=== PATIENT | female | born 1960 | race Caucasian/White ===

== ENCOUNTER 2025-01-16 01:06 | Day surgery (SDC) | payer MEDICARE, SELFPAY ==
[2025-01-08 09:25] VITALS: BMI 18.3
--- NOTE | 2025-01-08 09:35 | PC.NURSE ---
Report to the Outpatient Waiting Room, entrance under the green pavilion located off [facility], at time __0700am on date ____01/16/25___. Planned Procedure Time: __0900am .? Time changes happen often and if your time is changed the preop area will call you the afternoon before. - You and your visitor will be asked to self-screen and do not enter if you have any COVID symptoms. Please call surgeon if you need to reschedule. - A mask is optional within the hospital at this time. Patients may have clear liquids (water, carbonated beverages, clear teas, apple juice) until 3 hours prior to surgery with a maximum of 20 ounces. - No food from midnight until time of surgery and no smoking, or chewing tobacco (or any form of nicotine). No chewing gum, candy or mints. (0600am) Take only the following medications with a SIP of water on the morning of surgery: ____Levothyroxine DO NOT STOP ANY OF YOUR OTHER PRESCRIPTION MEDICATIONS PRIOR TO SURGERY EXCEPT THE FOLLOWING Hold all vitamins and supplements for 3 days per anesthesiologist. Date of last dose 01/12/25 Medications to discontinue per physician NONE Date to take last dose____NONE Please no make-up, nail uzbek, hairspray, perfume, deodorant, or body powder the day of surgery.? No jewelry (including any body piercings) or valuables the day of surgery, leave them at home.? Please take a shower or bath the night before, or the morning of, surgery with an antibacterial soap.?(GOLD DIAL) Wear comfortable, loose fitting clothing.? - Jewelry must be removed prior to entering the operating room.? Rings and piercings that are not removed may be cut off. - The hospital will not accept responsibility for valuables.? - Please leave all valuables, including medications, at home the day of surgery. If you are going home after surgery, a licensed power screwdriver operator must drive you home.? - NO public transportation without another adult if you receive anesthesia. - We recommend that an adult stay with you for 24 hours following discharge. - We also recommend that you do not drive, make important decision, drink alcoholic beverages, or take any drugs that were not prescribed by your health care provider for at least 24 hours after your discharge time. Follow any additional instructions given to you from your surgeon. Telephone instructions given to __Patient and asked if any additional questions and then verbalized understanding. Patient advised to call surgeon office or pre surgery nurse liaison [phone] if any additional questions.
--- OUTSIDE RECORDS SUMMARY | 2025-01-16 01:11 | XMS_ITS | Clinical Summary ---
Author Organization [facility] Address [address] [place] [address] Care Team Providers Care Web Portal Developer Name Role Phone Mehrdad Chappell MD Primary Care Provider Allergies No known active allergies Medications multivitamin tablet multivitamin tablet Active valACYclovir (VALTREX) 500 mg tablet Take 1 tablet (500 mg total) by mouth daily 90 tablet 2 4 Active levothyroxine (SYNTHROID) 25 mcg tablet TAKE 1 TABLET BY MOUTH DAILY IN THE EARLY IN THE MORNING BEFORE BREAKFAST 100 tablet 2 5 Active olmesartan (BENICAR) 5 mg tablet TAKE 1 TABLET(5 MG) BY MOUTH DAILY 90 tablet 1 5 Active LORazepam (ATIVAN) 0.5 mg tabletIndicati ons:anxiety Take 1 tablet (0.5 mg total) by mouth 2 (two) times a day as needed for anxiety 6 tablet 5 Active LORazepam (ATIVAN) 0.5 mg tabletIndicati ons:anxiety Take 1 tablet (0.5 mg total) by mouth 2 (two) times a day as needed for anxiety 6 tablet 5 025 Discontin ued(Reord er) Active Problems Problem Noted Date Diagnosed Date Acquired hypothyroidism 02/26/2021 Assessment & Plan (03/02/2022 9:37 PM CDT): Clinically euthyroid. Cont LTX 25mcg every day Osteopenia of neck of left femur 02/25/2020 Overview (02/25/2020): 02/2019 SUMMARY OF CURRENT RESULTS: Region BMD T-score Z-score AP Spine (L1-L4) 0.967 -0.7 0.7 Femoral Neck (Left) 0.664 -1.7 -0.4 Total Hip (Left) 0.804 -1.1 -0.2 Assessment & Plan (03/02/2022 9:38 PM CDT): Rec calcium, vit D, weight bearing exercise and check 02/2023 Assessment & Plan (02/25/2020 12:04 PM CDT): Monitor q2 yr Pain in both hands 02/25/2020 Neck pain 02/25/2020 Menopause 02/21/2019 Assessment & Plan (03/02/2022 9:38 PM CDT): F/b hormone clinic: estradiol pellet and progesterone PO Assessment & Plan (02/21/2019 1:22 PM CDT): dexa Routine health maintenance 02/20/2018 Assessment & Plan (03/02/2022 11:13 AM CDT): - - Depression screen: PHQ Screening PHQ-2 Total Score (If total score is 3 or more points, staff should administer the PHQ-9): 0 PHQ-9 Total Score: 0 - A1c: screen today - Lipids: screen today - DEXA: see osteopenia - Colon cancer: normal 02/2015, due 2024 - Mammogram: Normal 05/2021 - Pap: normal with neg HPV 09/2020 - Lung cancer: not needed - Hepatitis C: NR - HIV: NR - Influenza: utd - Td/Tdap: utd 2021 - Shingrix utd - Pneumovax rec at 63 - Prevnar: discuss at 63 - COVID: She had severe reactogenicity with dose #2 of moderna. We discussed risks and benefits of bivalent vaccine today. Routine health maintenance objectives discussed, including healthy diet, physical activity, and adequate calcium and vitamin D intake. Orders placed for any outstanding screening studies as noted. Physical exam performed as above.Routine annual labs, if needed, have been ordered and will be reviewed with patient when results available. Family history of aortic aneurysm 02/20/2018 Overview (02/20/2018): Dr. 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 02/26/2021 03/02/2022 Overview (02/26/2021): C5-6 loss of lordosis Assessment & Plan (02/26/2021 8:35 AM CDT): PT suggested Atrophic vaginitis 05/28/2019 2 Mass of head 01/19/2017 03/02/2022 Dyspareunia 02/24/2015 03/02/2022 Telogen effluvium 01/08/2014 03/02/2022 Overview (02/20/2018): Alternative Rx with Laminaria Celtic sea salt Ca/Mg/[place] Okra pepsin Chadian nuts-raw- and only 2 a day Assessment & Plan (02/21/2019 1:29 PM CDT): Her hair loss by report Encounters Date Type Department Care Team Description 01/08/2025 2:04 PM CDT - 01/08/2025 11:59 PM CDT Hospital Encounter [facility] [address] [place] [address] Screening mammogram, encounter for Discharge Disposition: Discharge to home or self care 01/08/2025 Results Follow-Up [facility] [address] [address] Mehrdad Chappell MD Screening Mammogram Bilateral W Eric from Last 3 Months Immunizations Immunization Administration Dates Next Due Influenza, Quadrivalent, Patricia l Culture-based MDCK, Antibiotic Free, Intramuscular 02/20/2018 Influenza, Quadrivalent, Rec ombinant, Egg Free, Preservative Free, Intramuscular 03/02/2022,02/26/2021,02/25/2020,02/21 Influenza, Quadrivalent, Spl it, Preservative Free, Intramuscular 03/07/2023 Influenza, Trivalent, High D ose, Split, Preservative Free, Intramuscular 03/13/2024 Moderna SARS-CoV-2 Monovalen t Vaccination (12+ YRS) 06/18/2020,05/21/2020 Pneumococcal Conjugate Pcv20 03/13/2024 RSV Vaccine, Pref, Recombina nt, Subunit, Adjuvanted, PF, IM (Arexvy) 03/08/2023 Tdap 03/02/2022,05/15/1999 ZOSTER Recombinant 06/18/2019,02/28/2019 Surgical History Surgery Date Site/Laterality Comments OTHER SURGICAL HISTORY 05/16/1990 - 05/15/1991 laser bx. endometriosis BREAST BIOPSY Right Medical History Medical History Date Comments History of multiple allergies Al lergies Neoplasm of unspecified beha vior of bone, soft tissue, and skin Soft tissue neoplasm - (Adde d by TW Conv) Other specified health status Hi story of dog bite - (Added by TW Conv) Personal history of diseases of skin or subcutaneous tissue History of actinic keratosis - (Added by TW Conv) Personal history of other benign neoplasm History of dysplastic nevus - (Added by TW Conv) Inflamed seborrheic keratosis In flamed seborrheic keratosis - (Added by TW Conv) Fibrocystic breast Breast cyst Family History Medical History Relation Name Comments Hyperlipidemia Father Hyperlipidemi a; Aortic aneurysm Maternal Grandfather Aortic aneurysm Mother Atrial fibrillation Mother Hypertension Mother Osteoporosis Mother Rheum arthritis Mother Aortic aneurysm Mother's Brother Breast cancer Sister Rheum arthritis Sister Relation Name Status Comments Father Alive Maternal Grandfather Mother Alive Mother's Brother Sister Social History Tobacco Use Types Packs/Day Years Used Date Smoking Tobacco: Never Smokeless Tobacco: Never Tobacco Cessation:Counseling Given: Not Answered AUDIT-C Answer Date Recorded Q1: How often do you have a drink containing alc ohol? 2-4 times a month 03/02/2022 Q2: How many drinks containi ng alcohol do you have on a typical day when you are drinking? 1 or 2 03/02/2022 Q3: How often do you have si x or more drinks on one occasion? 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 Gender Identity Female 02/20/2021 5:48 PM CDT Sexual Orientation Straight 02/20/2021 5: 48 PM CDT Occupation Industry Job Start Date Job End Date RN Not on file Not on file Not on file Obstetrics History Para Term AB IAB SAB Ectopic Multiple Livin g Live Births 2 1 1 Date Outcome GA Total Labor Labor/2nd/3rd Weight Sex Type Anes PTL Usha A1 A5 Name Clin Term Last Filed Vital Signs Vital Sign Reading Time Taken Comments Blood Pressure 134/93 03/13/2024 11:28 AM CDT Pulse 67 03/13/2024 11:27 AM CDT Temperature 36.7 C (98.1 F) 02/25/2020 11:47 AM CDT Respiratory Rate - - Oxygen Saturation 96% 03/13/2024 11:27 AM CDT Inhaled Oxygen Concentration - - Weight 54 kg (119 lb) 01/08/2025 2:10 PM CDT Height 170.2 cm (5' 7) 01/08/2025 2:10 PM CDT Body Mass Index 18.64 01/08/2025 2:10 PM CDT Plan of Treatment Health Maintenance Due Date Last Done Comments Covid-19 Vaccine (3 - 2024-2 6 season) 2025 06/18/2020, 05/21/2020 Influenza Vaccine (#1) 2025 , 03/07/2023, 03/02/2022, Additional history exists Colon Cancer Screening-Colonoscopy 02/24/2025 02/24/2015 Depression Screening 03/13/2025 03/13/2024, 03/07/2023, 03/02/2022, Additional history exists Fall Risk Assessment 03/13/2025 03/13/2024 Well Visit 65+ 03/13/2025 03/13/2024, 02/14, 03/02/2022, Additional history exists Osteoporosis Screening-Bone Density Scan 04/27/2025 04/27/2023, 03/07/2019 Breast Cancer Screening-Mammogram 01/08/2026 01/08/2025, 12/13/2023, 07/15/2022, Additional history exists DTaP/Tdap/Td Vaccine (3 - Td or Tdap) 03/02/2032 03/02/2022, 05/15/1999 Colon Cancer Screening-CT Colonography Discontinued 02/24/2015 Colon Cancer Screening-DNA Stool Discontinued 02/25/20 15 Colon Cancer Screening-FIT Discontinued 02/24/2015 Colon Cancer Screening-Sigmoidoscopy Discontinued 02/24/2015 Zoster Vaccine Completed 06/18/2019, 02/28/2019 Hepatitis C Screening Completed 03/07/2023 Hepatitis B Screening Completed 03/13/2024 Pneumococcal vaccine 65+ Completed 03/13/2024 Procedures Procedure Name Priority Date/Time Associated Diagnosis Comments SCREENING MAMMOGRAM BILATERAL W ERIC Schedule Routine, Read Routine (OP Routine) 01/08/2025 2:18 PM CDT Screening mammogram, encounter for DEXA AXIAL SKELETON BONE DENSITY 1 OR MORE SITES Schedule Routine, Read Routine (OP Routine) 04/27/2023 8:33 AM SOLAR POWER INSTALLER Osteopenia of left hip HEPATITIS C AB W/REFL TO HCV RNA, QN, PCR (REFL) Routine 03/07/2023 2:33 PM CDT Need for hepatitis C screening test HM COLONOSCOPY Routine 02/24/2015 from Last 3 Months or Most Recently Relevant to Health Maintenance Results * Screening Mammogram Bilateral W Eric (01/08/2025 2:18 PM CDT) Anatomical Region Laterality Modality Breast Bilateral Mammography Impressions 01/08/2025 2:34 PM CDT Bilateral No evidence of malignancy in either breast. OVERALL BI-RADS FINAL ASSESSMENT: 2 - Benign RECOMMENDATION: Recommend bilateral annual screening mammography. Consider supplemental screening with breast MRI every 1-2 years given extremely dense breast tissue. If breast MRI cannot be performed, consider contrast-enhanced mammography as an alternative. Narrative 01/08/2025 2:34 PM CDT EXAMINATION: Screening Mammogram Bilateral W Eric: 01/08/2025 COMPARISON: Relevant prior studies available at the time of interpretation were reviewed, including the most recent mammogram on: 12/13/2023. TECHNIQUE: Mammography was performed with 2D and 3D digital breast tomosynthesis (DBT) images. CAD was utilized. BREAST PARENCHYMAL COMPOSITION: The breasts are extremely dense, which lowers the sensitivity of mammography. FINDINGS: Bilateral There is no suspicious mass, calcification, or architectural distortion in either breast.There are benign calcifications in both breasts. us Self Screening Mammogram IMG MAMMO PROCEDURES Fi nal Result * Dexa Axial Skeleton Bone Density 1 or 2 Site (04/27/2023 8:33 AM SOLAR POWER INSTALLER) Anatomical Region Laterality Modality Body N/A Mammography 04/27/2023 9:23 AM SOLAR POWER INSTALLER Narrative 04/27/2023 9:23 AM SOLAR POWER INSTALLER EXAM DESCRIPTION: DEXA AXIAL SKELETON BONE DENSITY 1 OR MORE SITES REASON FOR STUDY: 62 y/o year old F with given history of: Postmenopausal status. Patient has taken/is taking hormone replacement therapy, vitamin-D and calcium. Telesales Manager/Model: [employer] (S/N [id number]) CLINICAL INFORMATION: Current height: 67.5 inches Maximum height: 67.5 inches Weight: 118 pounds Risk factors: None COMPARISON: None available FINDINGS: AP LUMBAR SPINE L1-L4: Total BMD is 1.007 g/cm2 T-score is -0.4 LEFT HIP: Total BMD is 0.818 g/cm2 T-score is -1.0 Femoral neck BMD is 0.665 g/cm2 T-score is -1.7 FRAX: 10 year risk for a major osteoporotic fracture is 7.6 %, 10 year risk for a hip fracture is 1.0 % IMPRESSION: Low bone mass REFERENCE: Bone mineral density: Normal (T-score above or = -1.0) Low bone mass (T-score between -1.0 and -2.5) replaces the previously used term osteopenia Osteoporosis (T-score = or below -2.5) Medical evaluation for secondary causes of low bone mineral density may be appropriate. FRAX is a World Health Organization validated fracture risk assessment tool that calculates a person's 10 year probability of a major osteoporosis related fracture and hip fracture. According to the National Osteoporosis Foundation guidelines, postmenopausal women and men age 50 or older with low bone mass and a 10 year probability of a major osteoporosis related fracture = or greater than 20% or a 10 year probability of a hip fracture = or greater than 3% should be considered for treatment. For further information, including treatment recommendations, please refer to the 2019 ISCD Official Positions (http://www.iscd.org) and the NOF's Clinician's Guide to Prevention and Treatment of Osteoporosis (http://www.nof.org/professionals/clinical-guidelines) THIS IS AN ELECTRONICALLY VERIFIED FINAL REPORT 04/27/2023 9:23 AM - Electronically signed by Bina Flower M.D. TW: TW Report ID: [id number] Reading Location: [id number] Procedure Note Bina Flower MD - 04/27/2023 EXAM DESCRIPTION: DEXA AXIAL SKELETON BONE DENSITY 1 OR MORE SITES REASON FOR STUDY: 62 y/o year old F with given history of:Postmenopausal status. Patient has taken/is taking hormone replacement therapy,vitamin-D and calcium. Telesales Manager/Model: [employer] A (S/N [id number]) CLINICAL INFORMATION: Current height: 67.5 inches Maximum height: 67.5 inches Weight: 118 pounds Risk factors: None COMPARISON: None available FINDINGS: AP LUMBAR SPINE L1-L4: Total BMD is 1.007 g/cm2 T-score is -0.4 LEFT HIP: Total BMD is 0.818 g/cm2 T-score is -1.0 Femoral neck BMD is 0.665 g/cm2 T-score is -1.7 FRAX: 10 year risk for a major osteoporotic fracture is 7.6 %, 10 year risk fora hip fracture is 1.0 % IMPRESSION: Low bone mass REFERENCE: Bone mineral density: Normal (T-score above or = -1.0) Low bone mass (T-score between -1.0 and -2.5) replaces thepreviously used term osteopenia Osteoporosis (T-score = or below -2.5) Medical evaluation for secondary causes of low bone mineral density may be appropriate. FRAX is a World Health Organization validated fracture risk assessmenttool that calculates a person's 10 year probability of a major osteoporosisrelated fracture and hip fracture. According to the National OsteoporosisFoundation guidelines, postmenopausal women and men age 50 or older with low bonemass and a 10 year probability of a major osteoporosis related fracture = or greater than 20% or a 10 year probability of a hip fracture = or greaterthan 3% should be considered for treatment. For further information, including treatment recommendations, please referto the 2019 ISCD Official Positions (http://www.iscd.org) and the NOF's Clinician's Guide to Prevention and Treatment of Osteoporosis (http://www.nof.org/professionals/clinical-guidelines) THIS IS AN ELECTRONICALLY VERIFIED FINAL REPORT 04/27/2023 9:23 AM - Electronically signed by Bina Flower M.D. TW: TW Report ID: [id number] Reading Location: [place] [address] Mehrdad Chappell MD IMG DXA PROCEDURES Fin al Result * HEPATITIS C AB W/REFL TO HCV RNA, QN, PCR (REFL) (03/07/2023 2:33 PM CDT) Hep C Ab NON-REACT PATRICIA NON-REACT PATRICIA [facility] Comment: HCV antibody was non-reactive. There is no laboratory evidence of HCV infection. In most cases, no further action is required. However, if recent HCV exposure is suspected, a test for HCV RNA (test code 42784) is suggested. For additional information please refer to http://education.[employer]ormill/faq/VGZ63f2 (This link is being provided for informational/ educational purposes only.) Our records indicate that you have ordered a client custom reflex order code. Only the initial test was performed because we do not have a client custom reflex testing authorization request form on file for you. Please contact a client specialist if you would like additional testing done on this patient or contact your personal lines sales rep to obtain a client custom reflex testing authorization request form. Blood 03/07/2023 2:33 PM CDT 03/07/2023 9:44 PM CDT Mehrdad Chappell MD LAB BLOOD ORDERABLES F inal Result [facility] [place] [address] * COLONOSCOPY (02/24/2015) [facility] Colonoscopy Normal Historical Provider HEALTH MAINTENANCE Final Result from Last 3 Months or Most Recently Relevant to Health Maintenance Insurance [facility] ACCESS BLUE ACC CHOICE OOS [facility] ACC[facility] BL[facility] ACC CHOICE OOS [facility] MEDICARE ADVANTAGE [facility] MEDICARE ADVANTAGE Care Teams Web Portal Developer Relationship Specialty Start Date End Date Mehrdad Chappell MD PCP - General Internal Medicine 03/07/23
--- OUTSIDE RECORDS SUMMARY | 2025-01-16 01:11 | XMS_ITS | Clinical Summary ---
Author Organization [facility] Address [address] [place] [address] Care Team Providers Care Heating Repair Technician Name Role Phone Tanner Mcqueen MD Primary Care Provider [phone] Source Comments [facility],non-owned Affiliates and Associated Physician Practices is amultiple site organization consisting of ambulatory clinics and hospital sitesin [place], [place], [place] and [place]. This disclosure is being madepursuant to the Care Everywhere program and may not contain all information available regarding this patient. 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 Gender Identity Not on file Sexual Orientation Not on file Plan of Treatment Health Maintenance Due Date Last Done Comments BONE DENSITY TESTING 1960 COLOGUARD (AGES 45-75) - COL ON CA SCREENING 1958 COLON MONITORING 1958 COLONOSCOPY - COLON CA SCREENING 1958 CT COLONOGRAPHY - COLON CA SCREENING 1958 Colorectal Cancer Screening 1958 FIT - COLON CA SCREENING 1958 FLEX SIG - COLON CA SCREENING 1958 LIPID TESTING 1958 MAMMOGRAM 1958 HEPATITIS C SCREENING 07/30/1976 DTAP/TDAP/TD VACCINES (1 - Tdap) 1977 PNEUMOCOCCAL VACCINE 50+ (1 of 1 - PCV) 2008 ZOSTER VACCINE (1 of 2) 2008 DEPRESSION SCREENING 05/16/2024 COVID-19 VACCINE ( - 2023-2 5 season) 2025 INFLUENZA VACCINE (#1) 2025 Respiratory Syncytial Virus (RSV) Vaccine Pt: or over 60 yrs (1 - 1-dose 75+ series) 2033 HEPATITIS B VACCINE Aged Out No longe r eligible based on patient's age to complete this topic HIB VACCINE Aged Out No longer eligi ble based on patient's age to complete this topic HPV VACCINE Aged Out No longer eligi ble based on patient's age to complete this topic MENINGOCOCCAL (Group B) VACC INE SHARED DECISION-MAKING Aged Out No longer eligibl e based on patient's age to complete this topic MENINGOCOCCAL GROUPS A/C/Y/W VACCINE Aged Out No longer eligible b ased on patient's age to complete this topic Care Teams Heating Repair Technician Relationship Specialty Start Date End Date Tanner Mcqueen MD [address] [place] [address] PCP - General 04/02/10
[2025-01-16 06:59] VITALS: BP 147/93; PULSE 55; RESP 16; TEMP 36.8; O2SAT 100
[2025-01-16] MEDS: ACETAMINOPHEN 500 MG TABLET 1000 MG PO (07:05)
[2025-01-16] MEDS: LACTATED RINGERS 1,000 ML 30 ML IV CONT (07:10)
--- NOTE | 2025-01-16 07:13 | P.PNAN_ITS ---
Anes - Initial Pre Proc Eval Procedure: Operation Date: 01/16/25 09:00 Proposed Procedures p Hysteroscopy Dilation and Curettage - Gregory Gomez MD Date/Time: 01/16/25 07:13 Surgeon: Gregory Gomez MD Pre Op Diagnosis: post menopausal bleeding Patient Data Age: 64 Gender: F Height: 1.7 m Weight: 53 kg Allergies Allergy/AdvReac Type Severity Reaction Status Date / Time No Known Allergies Allergy Verified 01/16/25 07:03 Home Medications ?Medication ?Instructions ?Recorded ?Confirmed ?Type docusate sodium 100 mg capsule 100 mg PO DAILY 5 01/16/25 History (Dulcolax Stool Softener (docusate)) levothyroxine 25 mcg tablet 25 mcg PO DAILY 01/08/25 0 01/16/25 History lorazepam 0.5 mg tablet 0.5 mg PO Q12H PRN anxiety 0 01/08/25 01/08/25 History magnesium glycinate 100 mg (as 100 mg PO DAILY 5 01/16/25 History glycinate) tablet (Mag Glycinate) multivitamin combination 1 tablet PO DAILY 01/08/25 0 01/16/25 History no.61-folic acid 1,000 mcg tablet olmesartan 5 mg tablet 5 mg PO .HS 01/08/25 5 History Patient hx anesthesia problems: none Family hx anesthesia problems: none Results Review: All pre-operative results and documents have been reviewed as part of the pre- operative evaluation. [facility] Past Medical History Medical History (Updated 01/15/25 @ 13:33 by Moy Aburto DO) Hypothyroidism Hypertension Social History Social History Smoking status: Never smoker Second hand tobacco smoke exposure: No Alcohol intake: current Drinks per week: 2 Substance use: current Other substance usage details: rarely uses a gummie to help sleep Living arrangements: with family Additional living arrangements comments: Spiritual care concerns: No Anes - Eval Final PreProcedure Day of Procedure 01/16/25 07:13 Patient weight: normal Heart: regular rate and rhythm Lungs: clear to auscultation and normal air movement Airway: Mallampati scale class II Neurological: alert and oriented Last oral intake: >/= 8 hours ASA classification: II Emergent: no Anesthetic plan: proceed Anesthesia type and monitoring: general GIVS and standard monitoring Results Review: All pre-operative results and documents have been reviewed as part of the pre- operative evaluation. Informed Consent: The patient's anesthetic plan and its attendant risks and benefits were discussed with the patient/family/POA. Questions were solicited and answers provided to the satisfaction of the patient/family/POA.
--- NOTE | 2025-01-16 07:21 | WPDHPUPDATE1 ---
History and Physical Update Update Date/Time: 01/16/25 07:21 History and Physical has been reviewed, including an updated exam of the patient. There are NO changes in the patient's condition. Risks, benefits, and alternatives have been discussed and questions answered. Patient agrees to proceed with procedure.
[2025-01-16] MEDS: KETOROLAC 15 MG/ML VIAL (*BKC) IV PUSH (07:49)
--- NOTE | 2025-01-16 07:53 | S_PTH ---
PATIENT: Kalpana Ely LOC: [facility] U#:[id number] AGE/SX: 64/F ROOM: RE01/16/[address]: Gregory Gomez MD : 1960 BED: DIS: 01/16/2025 SPEC #: [id number] RECD: 01/16/25 10:01 STATUS: KOLBY RE #: [id number] ARABELLA: 01/16/25 07:[address]: Gregory Gomez DEPT: [facility] Surgical RECD BY: Billy Calderon ENTERED: 01/16/25 10:02 SP TYPE: Surgical OTHR DR: Mehrdad ChappellMD Tissues: A - Endometrial Curettings Procedures: Hematoxylin and Eosin Stain Gross and Microscopic Level 4
--- NOTE | 2025-01-16 07:59 | W.PM.PROC2 ---
Procedure Note - Detailed Date of Procedure 01/16/25 Pre-op Diagnosis post menopausal bleeding Post-op Diagnosis Same Procedure Performed Hysteroscopy D&C with polypectomy Surgeon Gregory Gomez MD Anesthesia MAC Indications abnormal uterine bleeding Findings 2 cm polyp that filled the intrauterine cavity, normal vulva, vagina, cervix. Description of Procedure the patient was taken the operating room. She was prepped and draped in the dorsal lithotomy position after induction of mac anesthesia. A speculum was placed in the vagina. The cervix was grasped with a tenaculum. The cervix was dilated about 1 cm. The hysteroscope was inserted. The intrauterine cavity and endocervix were evaluated. The rotational bladed device was used to shave off the endometrial polyp. Hysteroscope was withdrawn. A medium-size curette was used to curettage all the surfaces were within the endometrial cavity. the sample was collected on Telfa and sent to pathology. The hysteroscope was reinserted and the above findings were noted. Patient tolerated the procedure well. The speculum and tenaculum were removed. She was taken recovery room in stable condition. Sponge lap and needle counts were correct x2. Estimated Blood Loss 40 Drains No Packing No Pathology Yes Complications No immediate complications Condition Stable Disposition PACU
[2025-01-16 08:01] VITALS: BP 149/76; PULSE 50; RESP 14; O2SAT 100
[2025-01-16] MEDS: oxyCODONE HCL (*CRX) 5 MG TAB IR PO (08:29)
[2025-01-16 08:30] VITALS: BP 123/74
[2025-01-16 08:57] VITALS: BP 100/58
== END 2025-01-16 09:21 | disposition home or self-care (01) ==
PROVIDERS: PCP Internal Medicine; Visit Provider Obstetrics & Gynecology
PROC: 0U5B8ZZ Destruction of Endometrium, Via Natural or Artificial Opening Endoscopic (ICD-10-PCS; CPT 58563; principal; 2025-01-16 09:00)
DX: N95.0 Postmenopausal bleeding (principal); N84.0 Polyp of corpus uteri
CPT/HCPCS: 58558; 88305; A9270; J1885; J2003; J2250; J2704; J3010; J7120